=== PATIENT | male | born 1990 | race Caucasian/White ===

== ENCOUNTER 2016-12-09 10:38 | Emergency (ER) | payer BC ==
[~2016-12-09] VITALS: Ht 182.9 cm; Wt 112.9 kg
[2016-12-09 10:44] VITALS: TEMP 36.8; Ht 182.9 cm; Wt 112.9 kg
[2016-12-09] MEDS ORDERED: ONDANSETRON INJ 2 MG/ML 2 ML VIAL IV STA (11:17)
[2016-12-09] MEDS ORDERED: MoRPHine SULFATE 4 MG/ML 1 ML CARP\\VIAL IV PRN (11:30)
[2016-12-09] MEDS ORDERED: SODIUM CHLORIDE 0.9% 1000ML 1,000 ML IV ONE (11:30)
[2016-12-09] MEDS ORDERED: OPTIRAY 320 IV PRN (11:45)
[2016-12-09 11:53] LABS: BASO % 0.1 %; BASO ABS # 0.01 K/uL (0-0.2); COMPLETE YES; EOS % 0.6 %; HEMATOCRIT 41.1 % (42-52); IG% 0.2 %; LYMPH % 15.9 %; LYMPH ABS # 2.09 K/uL (1.2-3.4); MEAN CELL VOLUME 85.1 fL (80-100); MEAN CORPUSCULAR HEMOGLOBIN 31.3 pg (25-34); MEAN CORPUSCULAR HGB CONC 36.7 g/dl (32-36); MEAN PLATELET VOLUME 10.2 fL (7.4-10.4); MONO % 6.1 %; NEUT % 77.1 %; PLATELET COUNT 206 K/uL (130-400); RED BLOOD COUNT 4.83 M/uL (4.7-6.1); WHITE BLOOD COUNT 13.18 K/uL (4.8-10.8)
[2016-12-09 12:06] LABS: BUN/CREATININE RATIO 9.4 (10-20); CALCIUM 9.3 mg/dl (8.5-10.1); POTASSIUM 3.8 mmol/L (3.5-5.1)
[2016-12-09 12:09] LABS: ALB/GLOB RATIO 0.9 (0.9-2)
--- NOTE | 2016-12-09 12:54 | DIAGNOSTIC IMAGING REPORT ---
ULTRASOUND TESTES AND SCROTUM CLINICAL HISTORY: Scrotal pain, right greater than left. COMPARISON STUDY: No priors. TECHNIQUE: Real-time, grayscale, and color Doppler sonography of the testes and scrotum is performed. Images are reviewed in the transverse and longitudinal planes. FINDINGS: The testes are normal in size and homogeneous in echotexture. The right testis measures 4.8 x 2.7 x 3.0 cm and the left testis measures 4.4 x 2.3 x 3.0 cm. No intratesticular mass is seen. Testicular blood flow is normal and symmetric. Normal Doppler waveforms are identified in both testes. The epididymal heads are normal in appearance. The right epididymal head measures 1.3 cm in length and the left epididymal head measures 1.2 cm in length. Small bilateral epididymal head cysts measure 4 mm. No varicocele or hydrocele is seen. IMPRESSION: Unremarkable sonographic assessment of the testes and scrotum. Electronically signed by: Ambrosio Bullard M.D. 12/09/2016 12:53 PM Dictated Date/Time: 12/09/2016 12:51 PM
[2016-12-09 13:48] LABS: URINE APPEARANCE CLEAR (CLEAR); URINE BILIRUBIN NEG (NEG); URINE COLOR YELLOW; URINE NITRITE NEG (NEG); URINE SPECIFIC GRAVITY 1.009 (1.000-1.030); UROBILINOGEN NEG (NEG); ZZUR CULT IF INDIC CLEAN CATCH NO
--- NOTE | 2016-12-09 13:51 | DIAGNOSTIC IMAGING REPORT ---
CT SCAN OF THE ABDOMEN AND PELVIS WITH IV CONTRAST CLINICAL HISTORY: Lower abdominal pain. COMPARISON STUDY: No priors. TECHNIQUE: Following the IV administration of 94 cc of Optiray 320, CT scan of the abdomen and pelvis is performed from the lung bases to the proximal femora. Images are reviewed in the axial, sagittal, and coronal planes. IV contrast was administered without complication. Automated dose control exposure was utilized. CT DOSE: 784.68 mGy.cm FINDINGS: Lung bases: The heart is normal in size and without pericardial effusion. The lung bases are clear noting dependent atelectasis. There is a small hiatal hernia. Liver: The contrast-enhanced liver is enlarged, measuring 19.5 cm in length. The liver demonstrates diffusely diminished attenuation consistent with hepatic steatosis. Fatty sparing is seen adjacent to gallbladder fossa. There is no intrahepatic biliary ductal dilatation. The hepatic veins and portal veins are patent. Gallbladder: Adenomyomatosis is suggested in the gallbladder fundus. The gallbladder is otherwise normal in appearance. Spleen: The spleen is enlarged, measuring 15.3 cm in length. Pancreas: Unremarkable. Adrenal glands: Unremarkable. Kidneys: The contrast enhanced kidneys are normal in size and without hydronephrosis. The kidneys enhance symmetrically. Abdominal vasculature: The abdominal aorta is normal in course and caliber. Bowel: The small bowel and colon are normal in course and caliber. There is mild to moderate sigmoid diverticulosis. There is wall thickening with pericolonic inflammation and fluid seen involving the proximal sigmoid. The appearance is consistent with acute diverticulitis. The appendix is normal in appearance. Peritoneum: There is a small volume of free fluid in the pelvis and left paracolic gutter. No intraperitoneal free air is seen. There is a small fat-containing umbilical hernia. Lymphadenopathy: None. Pelvic viscera: The bladder, prostate, and seminal vesicles are normal in appearance. Skeletal structures: No lytic or blastic lesions are seen. 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 IMPRESSION: 1. Findings are consistent with acute diverticulitis of the sigmoid colon. No intraperitoneal free air is seen and there is no evidence of abscess. 2. Free fluid in the pelvis and left paracolic gutter is likely on a reactive basis. 3. Hepatomegaly and hepatic steatosis. 4. Splenomegaly. 5. Additional findings as above. Electronically signed by: Ambrosio Bullard M.D. 12/09/2016 1:50 PM Dictated Date/Time: 12/09/2016 1:43 PM
[2016-12-09] MEDS ORDERED: CIPROFLOXACIN 500 MG TAB PO STA (14:02)
[2016-12-09] MEDS ORDERED: METRONIDAZOLE 250 MG TAB PO STA (14:02)
[2016-12-09 14:08] LABS: MANUAL MICROSCOPIC REQUIRED? NO; REVIEW REQ? NO
[2016-12-09] MEDS ORDERED: ONDA4TAB10 SL (14:26)
[2016-12-09] MEDS ORDERED: CIPR-255 PO (14:26)
[2016-12-09] MEDS ORDERED: HYDR-5688 PO (14:26)
[2016-12-09] MEDS ORDERED: METR-163 PO (14:26)
[2016-12-09 15:00] VITALS: BP 123/73; PULSE 67; O2SAT 98
--- NOTE | 2016-12-09 18:32 | EMERGENCY ROOM VISIT NOTE ---
History First contact with patient: 11:02 Chief Complaint: ABDOMINAL PAIN Stated Complaint: LOWER ABD PAIN, TESTICULAR DISCOMFORT Nursing Triage Summary: pt reports low abdominal pain since Thurs. AM , denies NV eating does not change pain . denies burning or pain with urination the need to urinate increases abdominal pain History of Present Illness The patient is a 25 year old male who presents to the Emergency Room with complaints of right lower quadrant abdominal pain for the past 3 days. The patient states his symptoms started as a very dull ache and has slowly increased in severity. His pain does not radiate. There is no improvement or worsening with food or using the bathroom. He does not have dysuria. He is without a history of abdominal surgery in the past. He may have had a fever yesterday, but did not check his temperature. He is not taking anything over- the-counter for his symptoms. At times he feels discomfort in his bilateral testicles. No urethral drainage or discharge. The patient is in a mutually monogamous relationship without concern for STD. He rates his current discomfort a 7/10. Review of Systems More than 10 systems were reviewed and otherwise negative with the exception of history of present illness. Past Medical/Surgical History No chronic medical disease Family History No pertinent family history Social History Smoking Status: Never Smoker Housing Status: lives with family Current/Historical Medications Scheduled Ciprofloxacin Hcl (Cipro), 500 MG PO BID Metronidazole (Flagyl), 500 MG PO TID Ondasetron Odt (Zofran Odt), 4 MG SL Q6H Scheduled PRN Hydrocodone/Acetaminophen 5MG/325MG (Colora 5MG/325MG), 1 TABLET PO Q6 PRN for Pain Allergies Coded Allergies: Acetaminophen (Verified Adverse Reaction, Severe, VOMITING, 12/09/16) Oxycodone (Verified Adverse Reaction, Severe, VOMITING, 12/09/16) Physical Exam Vital Signs Date Time Temp Pulse Resp B/P (MAP) Pulse Ox O2 Delivery O2 Flow Rate FiO2 12/09/16 15:00 67 18 123/73 98 12/09/16 13:40 69 16 132/65 100 Room Air 12/09/16 10:44 36.8 88 18 130/79 97 Room Air Pain Rating (0-10): 1.0 Physical Exam VITALS: Vitals are noted on the nurse's note and reviewed by myself. Vital signs stable. GENERAL: Well-developed, well-nourished, white male, who is in no acute distress and resting comfortably. Patient is cooperative with the examination. HEAD: Normocephalic atraumatic. HEART: Regular rate and rhythm without murmurs gallops or rubs. LUNGS: Clear to auscultation bilaterally without wheezes, rales or rhonchi. No retractions or accessory muscle use. ABDOMEN: Positive normal bowel sounds x 4. Soft with right lower quadrant abdominal tenderness on palpation. No rebound or guarding. No CVA tenderness. MUSCULOSKELETAL: No muscle atrophy, erythema, or edema noted. Full range of motion without joint tenderness in all extremities. Medical Decision & Procedures ER Provider Diagnostic Interpretation: ULTRASOUND TESTES AND SCROTUM CLINICAL HISTORY: Scrotal pain, right greater than left. COMPARISON STUDY: No priors. TECHNIQUE: Real-time, grayscale, and color Doppler sonography of the testes and scrotum is performed. Images are reviewed in the transverse and longitudinal planes. FINDINGS: The testes are normal in size and homogeneous in echotexture. The right testis measures 4.8 x 2.7 x 3.0 cm and the left testis measures 4.4 x 2.3 x 3.0 cm. No intratesticular mass is seen. Testicular blood flow is normal and symmetric. Normal Doppler waveforms are identified in both testes. The epididymal heads are normal in appearance. The right epididymal head measures 1.3 cm in length and the left epididymal head measures 1.2 cm in length. Small bilateral epididymal head cysts measure 4 mm. No varicocele or hydrocele is seen. IMPRESSION: Unremarkable sonographic assessment of the testes and scrotum. CT SCAN OF THE ABDOMEN AND PELVIS WITH IV CONTRAST CLINICAL HISTORY: Lower abdominal pain. COMPARISON STUDY: No priors. TECHNIQUE: Following the IV administration of 94 cc of Optiray 320, CT scan of the abdomen and pelvis is performed from the lung bases to the proximal femora. Images are reviewed in the axial, sagittal, and coronal planes. IV contrast was administered without complication. Automated dose control exposure was utilized. CT DOSE: 784.68 mGy.cm FINDINGS: Lung bases: The heart is normal in size and without pericardial effusion. The lung bases are clear noting dependent atelectasis. There is a small hiatal hernia. Liver: The contrast-enhanced liver is enlarged, measuring 19.5 cm in length. The liver demonstrates diffusely diminished attenuation consistent with hepatic steatosis. Fatty sparing is seen adjacent to gallbladder fossa. There is no intrahepatic biliary ductal dilatation. The hepatic veins and portal veins are patent. Gallbladder: Adenomyomatosis is suggested in the gallbladder fundus. The gallbladder is otherwise normal in appearance. Spleen: The spleen is enlarged, measuring 15.3 cm in length. Pancreas: Unremarkable. Adrenal glands: Unremarkable. Kidneys: The contrast enhanced kidneys are normal in size and without hydronephrosis. The kidneys enhance symmetrically. Abdominal vasculature: The abdominal aorta is normal in course and caliber. Bowel: The small bowel and colon are normal in course and caliber. There is mild to moderate sigmoid diverticulosis. There is wall thickening with pericolonic inflammation and fluid seen involving the proximal sigmoid. The appearance is consistent with acute diverticulitis. The appendix is normal in appearance. Peritoneum: There is a small volume of free fluid in the pelvis and left paracolic gutter. No intraperitoneal free air is seen. There is a small fat-containing umbilical hernia. Lymphadenopathy: None. Pelvic viscera: The bladder, prostate, and seminal vesicles are normal in appearance. Skeletal structures: No lytic or blastic lesions are seen. 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 IMPRESSION: 1. Findings are consistent with acute diverticulitis of the sigmoid colon. No intraperitoneal free air is seen and there is no evidence of abscess. 2. Free fluid in the pelvis and left paracolic gutter is likely on a reactive basis. 3. Hepatomegaly and hepatic steatosis. 4. Splenomegaly. 5. Additional findings as above. Laboratory Results 12/09/16 11:25 Red Blood Count 4.83, Mean Corpuscular Volume 85.1, Mean Corpuscular Hemoglobin 31.3, Mean Corpuscular Hemoglobin Concent 36.7, Mean Platelet Volume 10.2, Neutrophils (%) (Auto) 77.1, Lymphocytes (%) (Auto) 15.9, Monocytes (%) (Auto) 6.1, Eosinophils (%) (Auto) 0.6, Basophils (%) (Auto) 0.1, Neutrophils # (Auto) 10.16, Lymphocytes # (Auto) 2.09, Monocytes # (Auto) 0.81, Eosinophils # (Auto) 0.08, Basophils # (Auto) 0.01 12/09/16 11:25 Test 12/09/16 11:25 12/09/16 13:28 White Blood Count 13.18 K/uL (4.8-10.8) Red Blood Count 4.83 M/uL (4.7-6.1) Hemoglobin 15.1 g/dL (14.0-18.0) Hematocrit 41.1 % (42-52) Mean Corpuscular Volume 85.1 fL (80-100) Mean Corpuscular Hemoglobin 31.3 pg (25-34) Mean Corpuscular Hemoglobin Concent 36.7 g/dl (32-36) Platelet Count 206 K/uL (130-400) Mean Platelet Volume 10.2 fL (7.4-10.4) Neutrophils (%) (Auto) 77.1 % Lymphocytes (%) (Auto) 15.9 % Monocytes (%) (Auto) 6.1 % Eosinophils (%) (Auto) 0.6 % Basophils (%) (Auto) 0.1 % Neutrophils # (Auto) 10.16 K/uL (1.4-6.5) Lymphocytes # (Auto) 2.09 K/uL (1.2-3.4) Monocytes # (Auto) 0.81 K/uL (0.11-0.59) Eosinophils # (Auto) 0.08 K/uL (0-0.5) Basophils # (Auto) 0.01 K/uL (0-0.2) RDW Standard Deviation 37.2 fL (36.4-46.3) RDW Coefficient of Variation 12.0 % (11.5-14.5) Immature Granulocyte % (Auto) 0.2 % Immature Granulocyte # (Auto) 0.03 K/uL (0.00-0.02) Anion Gap 5.0 mmol/L (3-11) Est Creatinine Clear Calc Drug Dose 146.5 ml/min Estimated GFR () 120.7 Estimated GFR (Non- 104.1 BUN/Creatinine Ratio 9.4 (10-20) Calcium Level 9.3 mg/dl (8.5-10.1) Total Bilirubin 1.6 mg/dl (0.2-1) Aspartate Amino Transf (AST/SGOT) 10 U/L (15-37) Alanine Aminotransferase (ALT/SGPT) 26 U/L (12-78) Alkaline Phosphatase 68 U/L (45-117) Total Protein 7.6 gm/dl (6.4-8.2) Albumin 3.7 gm/dl (3.4-5.0) Globulin 3.9 gm/dl (2.5-4.0) Albumin/Globulin Ratio 0.9 (0.9-2) Lipase 111 U/L (73-393) Urine Color YELLOW Urine Appearance CLEAR (CLEAR) Urine pH 7.0 (4.5-7.5) Urine Specific [place] 1.009 (1.000-1.030) Urine Protein NEG (NEG) Urine Glucose (UA) NEG (NEG) Urine Ketones NEG (NEG) Urine Occult Blood NEG (NEG) Urine Nitrite NEG (NEG) Urine Bilirubin NEG (NEG) Urine Urobilinogen NEG (NEG) Urine Leukocyte Esterase NEG (NEG) Medications Administered Medications (Trade) Dose Ordered Sig/Caitlin Route Start Time Stop Time Status Last Admin Dose Admin Morphine Sulfate (MoRPHine SULFATE INJ) 4 mg Q1H PRN IV 12/09/16 11:30 12/09/16 16:40 DC 12/09/16 11:49 4 MG Sodium Chloride 1,000 ml @ 999 mls/hr Q1H1M ONCE IV 12/09/16 11:30 12/09/16 12:30 DC 12/09/16 11:40 999 MLS/HR Ondansetron HCl (Zofran Inj) 4 mg NOW STAT IV 12/09/16 11:17 12/09/16 11:20 DC 12/09/16 11:48 4 MG Ciprofloxacin (Cipro Tab) 500 mg NOW STAT PO 12/09/16 14:02 12/09/16 14:03 DC 12/09/16 14:54 500 MG Metronidazole (Flagyl Tab) 500 mg NOW STAT PO 12/09/16 14:02 12/09/16 14:03 DC 12/09/16 14:54 500 MG ED Course Physical exam and history were performed. Nursing notes and EMR were reviewed. Patient appears to have right lower quadrant abdominal pain for the past several days. He is tender in the right lower quadrant. He does not appear toxic. IV access was established and labs were obtained. The patient was hydrated and medicated as above. He does report some testicular pain and ultrasound was performed. Additionally CT scan of the abdomen and pelvis was performed. The patient's blood work is as above and was reviewed. He does have an elevated white blood cell count of 13,000. He does not have a significant anemia, bandemia, or significant electrolyte imbalance. Lipase and transaminases were nondiagnostic. Ultrasound does not show evidence of acute testicular cause of the symptoms. CT scan does show an acute sigmoid diverticulitis, and clinically this would correlate with the patient's discomfort. Overall the patient appears stable for discharge home. He was provided Cipro and Flagyl here in the department and will be given a continuation of this medication. He will need to follow with his primary care physician in the next few days for recheck. He is certainly invited back to the ER with any new, worsening, or concerning symptoms. He was given additional discharge instructions as below and rated his discomfort a 1/10 at the time of departure. He was discharged home under the care of female recording artist who is acting as the lumber stacker driver today. The chart was completed utilizing [employer] Speech Voice Recognition Software. Grammatical errors, random word insertions, pronoun errors, and incomplete sentences are an occasional consequence of this system due to software limitations, ambient noise, and hardware issues. Any formal questions or concerns about the content, text, or information contained within the body of this dictation should be directly addressed to the provider for clarification. . Medical Decision Differential diagnosis: Etiologies such as appendicitis, diverticulitis, PUD, biliary pathology, UTI, pancreatitis, obstruction, mesenteric ischemia, aortic pathology, infections, inflammatory bowel disease, renal colic, as well as others were entertained. Impression Primary Impression: Diverticulitis of sigmoid colon Departure Information Dispostion Home / Self-Care Condition GOOD Prescriptions Metronidazole (Flagyl) 500 Mg Tab 500 MG PO TID for 10 Days, #30 TAB Prov: William Reyes PA-C 12/09/16 Ciprofloxacin Hcl (CIPRO) 500 Mg Tab 500 MG PO BID for 10 Days, #20 TAB Prov: William Reyes PA-C 12/09/16 Ondasetron Odt (ZOFRAN ODT) 4 Mg Tab 4 MG SL Q6H for Nausea, #12 TAB Prov: William Reyes PA-C 12/09/16 Hydrocodone/Acetaminophen 5MG/325MG (Colora 5MG/325MG) Tab 1 TABLET PO Q6 Y for Pain, #12 TAB For Initial Treatment Prov: William Reyes PA-C 12/09/16 Forms HOME CARE DOCUMENTATION FORM, Work Instructions, Additional Instructions: Patient was seen and evaluated today in the emergency department fo medical care. Return to work on 12/12/2016. Please excuse. IMPORTANT VISIT INFORMATION Patient Instructions [facility] Additional Instructions You were seen and evaluated today on an emergency basis only. This is not a substitute for, or an effort to provide, complete comprehensive medical care. It is not possible to recognize and treat all injuries or illnesses in a single emergency department visit. For this reason it is recommended that you followup with your primary care physician in the next week for recheck of your condition. Ciprofloxacin(Cipro) 500mg: Take one pill twice daily for 10 days for your infection. All antibiotics can cause diarrhea. If this occurs and you feel worse or it does not resolve in 1-2 days follow up with your doctor or return to the Emergency Department as this could be signs of serious underlying problems. If you experience any pain in your tendons or any tendon injury return to the ER for re-evaluation. Any medication can cause an allergic reaction, stop the pills immediately and return to the ER for rash, hives, breathing difficulties, or swelling. Metronidazole(Flagyl) 500mg: Take one pill three times daily for 10 days for your infection. DO NOT drink alcohol or take alcohol containing products with this medication. Any medication can cause an allergic reaction, stop the pills immediately and return to the ER for rash, hives, breathing difficulties, or swelling. Colora (hydrocodone/acetaminophen) 5/325 mg every 6 hours as needed for worsening breakthrough pain. Do not drink or drive on Colora. This medication will likely make you tired. Do not take Colora and Tylenol at the same time as both contain acetaminophen. Colora may cause constipation. You may wish to take an [id number] stool softener like Colace if this occurs. Zofran 1 tablet every 6 hrs as needed for nausea. You are welcome to return to the emergency department anytime with new, worsening, or concerning symptoms. Work Instructions Additional Work Instructions: Patient was seen and evaluated today in the emergency department for medical care. Return to work on 12/12/2016. Please excuse.
== END 2016-12-09 15:00 | disposition home or self-care (01) ==
LOC: C.EDB 10:40 → C.EDA 15:00
DX: K57.30 Diverticulosis of large intestine without perforation or abscess without bleeding (principal)